=== PATIENT | female | born 1980 | race African-American/Black ===

== ENCOUNTER 2019-07-08 02:43 | Emergency (ER) | payer MEDICAID ==
[~2019-07-08] VITALS: Ht 170.2 cm; Wt 86.4 kg
[~2019-07-08 02:43] MED LIST: BENZ1TAB10 PO; RISP1 PO; TRAZ-252 PO
[2019-07-08 03:34] LABS: BASOPHILS % (AUTO) 0.3 % (0.0-2.0); EOSINOPHILS % (AUTO) 2.1 % (1.0-6.0); HEMATOCRIT 36.5 % (36-46); HEMOGLOBIN 11.9 g/dL (12.0-16.0); LYMPHOCYTES # (AUTO) 1.5 K/uL (1.0-4.8); LYMPHOCYTES % (AUTO) 17.7 % (22.0-44.0); MEAN CORPUSCULAR HEMOGLOBIN 27.5 pg (26.0-34.0); MEAN CORPUSCULAR HGB CONC 32.7 G/dL (31.0-37.0); MEAN CORPUSCULAR VOLUME 84 fL (80-100); MONOCYTES # (AUTO) 0.7 K/uL (0.1-1.0); MONOCYTES % (AUTO) 8.3 % (2.0-9.0); NEUTROPHILS # (AUTO) 6.1 K/uL (1.8-7.7); NEUTROPHILS % (AUTO) 71.6 % (40.0-70.0); PLATELET COUNT (AUTO) 320 K/uL (150-450); RED BLOOD CELL COUNT(AUTO) 4.34 MIL/uL (4.00-5.20); RED CELL DISTRIBUTION WIDTH 16.6 % (11.5-14.5)
[2019-07-08 03:47] LABS: ANION GAP 4 mmol/L (8-16); CALCIUM, TOTAL 7.9 mg/dL (8.8-10.5); CARBON DIOXIDE 30 mmol/L (22-29); CHLORIDE 106 mmol/L (98-107); CREATININE 0.84 mg/dL (0.60-1.30); GLOMERULAR FILTR. RATE CALC > 60 mL/min (>60); GLUCOSE,RANDOM 100 mg/dL (70-110); SODIUM SERUM 140 mmol/L (136-145); UREA NITROGEN, BLOOD 9 mg/dL (7-18)
[2019-07-08 04:07] LABS: ALANINE AMINOTRANSFERASE 26 U/L (12-78); ALBUMIN 3.4 g/dL (3.4-5.0); ALKALINE PHOSPHATASE 95 U/L (46-116); ASPARTATE AMINOTRANSFERASE 27 U/L (15-37); BILIRUBIN,TOTAL 0.1 mg/dL (0.1-1.0); HCG,QUANTITATIVE < 1 mIU/mL (0-6); TOTAL PROTEIN, SERUM 7.3 g/dL (6.4-8.2)
[2019-07-08 05:54] LABS: AMPHET/METH SCREEN,URINE NEGATIVE (NEGATIVE); BARBITURATE SCREEN, URINE NEGATIVE (NEGATIVE); BENZODIAZEPINES SCREEN,URINE NEGATIVE (NEGATIVE); CANNABINOID SCREEN,URINE NEGATIVE (NEGATIVE); COCAINE SCREEN,URINE NEGATIVE (NEGATIVE); METHADONE SCREEN, URINE NEGATIVE (NEGATIVE); OPIATE SCREEN,URINE NEGATIVE (NEGATIVE); PHENCYCLIDINE SCREEN,URINE NEGATIVE (NEGATIVE)
[2019-07-08 10:20] VITALS: BP 106/65
== END 2019-07-08 10:42 | disposition home or self-care (01) ==
LOC: EMS 02:44
DX: S02.2XXA Fracture of nasal bones, initial encounter for closed fracture (principal); S00.03XA Contusion of scalp, initial encounter; S00.83XA Contusion of other part of head, initial encounter; S10.93XA Contusion of unspecified part of neck, initial encounter; F10.129 Alcohol abuse with intoxication, unspecified; F19.90 Other psychoactive substance use, unspecified, uncomplicated; Y04.2XXA Assault by strike against or bumped into by another person, initial encounter; Y93.89 Activity, other specified; Y92.89 Other specified places as the place of occurrence of the external cause; Y99.8 Other external cause status
CPT/HCPCS: 36415; 70450; 70486; 72125; 80053; 80307; 84702; 85025; 99285; G0480

== ENCOUNTER 2019-09-28 22:18 | Inpatient (IN) | payer MEDICAID ==
[2019-09-29] MEDS ORDERED: ZOLPIDEM TARTRATE 10 MG TABLET PO PRN (01:15)
[2019-09-29] MEDS ORDERED: HALOPERIDOL 5 MG TABLET PO PRN (01:15)
[2019-09-29 01:18] VITALS: BP 111/67
[2019-09-29] MEDS ORDERED: INFLUENZA VIRUS VACCINE QVS 2019-20 (3YR+)/PF 60 MCG/0.5 ML SYRINGE IM ONE (02:30)
[2019-09-29 08:30] VITALS: BP 104/65
[2019-09-29] MEDS: LORazepam 1 MG TABLET PO PRN ×2 (10:26→15:24)
[2019-09-29] MEDS ORDERED: LOPERAMIDE HCL 2 MG CAPSULE PO PRN (11:15)
[2019-09-29] MEDS ORDERED: ALBUTEROL SULFATE HFA 90 MCG/PUFF 8 GM INHALER IH PRN (11:15)
[2019-09-29] MEDS ORDERED: MAGNESIUM HYDROXIDE SUSPENSION 30 ML UDCUP PO PRN (11:15)
[2019-09-29] MEDS ORDERED: NICOTINE 14 MG/24 HOUR PATCH TD PRN (11:15)
[2019-09-29] MEDS ORDERED: ACETAMINOPHEN 325 MG TABLET PO PRN (11:15)
[2019-09-29] MEDS ORDERED: CloNIDine HCL 0.1 MG TABLET PO PRN (11:15)
[2019-09-29] MEDS ORDERED: GuaiFENesin/D-METHORPHAN [SUGAR-FREE] 200-20MG/10 ML SYRUP UDCUP PO PRN (11:15)
[2019-09-29] MEDS ORDERED: IBUPROFEN 400 MG TABLET PO PRN (11:15)
[2019-09-29] MEDS ORDERED: ONDANSETRON HCL 4 MG TABLET PO PRN (11:15)
[2019-09-29] MEDS ORDERED: DOCUSATE SODIUM 100 MG CAPSULE PO PRN (11:15)
[2019-09-29] MEDS ORDERED: MAG HYDROX/AL HYDROX/SIMETH ES 30 ML SUSPENSION UDCUP PO PRN (11:15)
[2019-09-29] MEDS ORDERED: PETROLATUM,WHITE 28 GM JELLY TP PRN (11:15)
[2019-09-29] MEDS: BusPIRone HCL 10 MG TABLET PO SCH (16:09)
[2019-09-29] MEDS: SERTRALINE HCL 100 MG TABLET PO SCH (16:09)
[2019-09-29] MEDS: RisperiDONE 2 MG TABLET PO SCH (16:09)
[2019-09-29 16:14] VITALS: BP 112/60
[2019-09-29] MEDS: TraZODone HCL 50 MG TABLET PO SCH (20:25)
[2019-09-30 06:51] VITALS: BP 98/63
[2019-09-30 07:44] LABS: CHOL/HDL RATIO 1.9 (3.9-5.7); FREE T4 (FREE THYROXINE) 1.29 ng/dL (0.76-1.46)
[2019-09-30] MEDS: SERTRALINE HCL 100 MG TABLET PO SCH (08:34)
[2019-09-30] MEDS: BusPIRone HCL 10 MG TABLET PO SCH ×2 (08:34→16:57)
[2019-09-30] MEDS: RisperiDONE 2 MG TABLET PO SCH ×2 (08:34→16:57)
[2019-09-30 08:40] VITALS: BP 111/62
[2019-09-30 16:03] VITALS: BP 113/90
[2019-09-30] MEDS: TraZODone HCL 50 MG TABLET PO SCH (20:20)
[2019-10-01 07:12] VITALS: BP 106/62
[2019-10-01] MEDS: SERTRALINE HCL 100 MG TABLET PO SCH (08:33)
[2019-10-01] MEDS: BusPIRone HCL 10 MG TABLET PO SCH ×2 (08:33→17:00)
[2019-10-01] MEDS: RisperiDONE 2 MG TABLET PO SCH ×2 (08:33→17:00)
[2019-10-01 10:02] VITALS: BP 105/75
[2019-10-01 16:09] VITALS: BP 102/72
[2019-10-01] MEDS: TraZODone HCL 50 MG TABLET PO SCH (21:12)
[2019-10-02 05:03] VITALS: BP 108/64
[2019-10-02] MEDS: RisperiDONE 2 MG TABLET PO SCH ×2 (08:15→16:50)
[2019-10-02] MEDS: SERTRALINE HCL 100 MG TABLET PO SCH (08:15)
[2019-10-02] MEDS: BusPIRone HCL 10 MG TABLET PO SCH ×2 (08:15→16:50)
[2019-10-02 08:17] VITALS: BP 103/61
[2019-10-02 16:01] VITALS: BP 104/63
[2019-10-02] MEDS: TraZODone HCL 50 MG TABLET PO SCH (21:40)
[2019-10-03 00:33] VITALS: BP 107/53
[2019-10-03 08:15] VITALS: BP 96/61
[2019-10-03] MEDS: RisperiDONE 2 MG TABLET PO SCH ×2 (08:15→16:22)
[2019-10-03] MEDS: BusPIRone HCL 10 MG TABLET PO SCH ×2 (08:15→16:22)
[2019-10-03] MEDS: SERTRALINE HCL 100 MG TABLET PO SCH (08:15)
[2019-10-03 16:20] VITALS: BP 111/71
[2019-10-03] MEDS: TraZODone HCL 50 MG TABLET PO SCH (20:31)
[2019-10-04 00:24] VITALS: BP 91/52
[2019-10-04 08:13] VITALS: BP 104/63
[2019-10-04] MEDS: SERTRALINE HCL 100 MG TABLET PO SCH (08:17)
[2019-10-04] MEDS: BusPIRone HCL 10 MG TABLET PO SCH ×2 (08:17→16:02)
[2019-10-04] MEDS: RisperiDONE 2 MG TABLET PO SCH ×2 (08:17→16:01)
[2019-10-04 18:05] VITALS: BP 93/56
[2019-10-04] MEDS: TraZODone HCL 50 MG TABLET PO SCH (20:15)
[2019-10-05 00:52] VITALS: BP 86/46
[2019-10-05 01:55] VITALS: BP 90/47
[2019-10-05 08:15] VITALS: BP 106/62
[2019-10-05] MEDS: BusPIRone HCL 10 MG TABLET PO SCH ×2 (08:35→16:41)
[2019-10-05] MEDS: SERTRALINE HCL 100 MG TABLET PO SCH (08:35)
[2019-10-05] MEDS: RisperiDONE 2 MG TABLET PO SCH ×2 (08:35→16:41)
[2019-10-05 16:01] VITALS: BP 111/65
[2019-10-05] MEDS: TraZODone HCL 50 MG TABLET PO SCH (20:05)
[2019-10-06 00:46] VITALS: BP 96/58
[2019-10-06 08:13] VITALS: BP 100/55
[2019-10-06 08:13] LABS: ANION GAP 8 mmol/L (8-16); CALCIUM, TOTAL 8.8 mg/dL (8.8-10.5); CARBON DIOXIDE 26 mmol/L (22-29); CHLORIDE 108 mmol/L (98-107); CREATININE 0.82 mg/dL (0.60-1.30); GLOMERULAR FILTR. RATE CALC > 60 mL/min (>60); GLUCOSE,RANDOM 83 mg/dL (70-110); POTASSIUM 4.1 mmol/L (3.5-5.1); SODIUM SERUM 142 mmol/L (136-145); UREA NITROGEN, BLOOD 13 mg/dL (7-18)
[2019-10-06] MEDS: RisperiDONE 2 MG TABLET PO SCH ×2 (08:16→16:10)
[2019-10-06] MEDS: BusPIRone HCL 10 MG TABLET PO SCH ×2 (08:16→16:10)
[2019-10-06] MEDS: SERTRALINE HCL 100 MG TABLET PO SCH (08:16)
[2019-10-06 16:00] VITALS: BP 102/60
[2019-10-06] MEDS: TraZODone HCL 50 MG TABLET PO SCH (20:02)
[2019-10-07 06:39] VITALS: BP 90/51
[2019-10-07 09:20] VITALS: BP 100/62
[2019-10-07] MEDS: RisperiDONE 2 MG TABLET PO SCH ×2 (09:22→16:09)
[2019-10-07] MEDS: BusPIRone HCL 10 MG TABLET PO SCH ×2 (09:22→16:09)
[2019-10-07] MEDS: SERTRALINE HCL 100 MG TABLET PO SCH (09:22)
[2019-10-07 16:31] VITALS: BP 92/54
[2019-10-07] MEDS: TraZODone HCL 50 MG TABLET PO SCH (20:06)
[2019-10-08 06:22] VITALS: BP 103/58
[2019-10-08] MEDS: SERTRALINE HCL 100 MG TABLET PO SCH (08:01)
[2019-10-08] MEDS: RisperiDONE 2 MG TABLET PO SCH ×2 (08:01→16:40)
[2019-10-08] MEDS: BusPIRone HCL 10 MG TABLET PO SCH ×2 (08:01→16:40)
[2019-10-08 09:02] VITALS: BP 104/64
[2019-10-08 16:02] VITALS: BP 114/69
[2019-10-08] MEDS: TraZODone HCL 50 MG TABLET PO SCH (20:05)
[2019-10-09 00:31] VITALS: BP 98/65
[2019-10-09 08:22] VITALS: BP 106/70
[2019-10-09] MEDS: SERTRALINE HCL 100 MG TABLET PO SCH (08:52)
[2019-10-09] MEDS: BusPIRone HCL 10 MG TABLET PO SCH ×2 (08:52→16:55)
[2019-10-09] MEDS: RisperiDONE 2 MG TABLET PO SCH ×2 (08:52→16:55)
[2019-10-09 16:02] VITALS: BP 109/68
[2019-10-09] MEDS: TraZODone HCL 50 MG TABLET PO SCH (20:10)
[2019-10-10 00:26] VITALS: BP 88/45
[2019-10-10] MEDS: RisperiDONE 2 MG TABLET PO SCH ×2 (08:31→16:32)
[2019-10-10] MEDS: BusPIRone HCL 10 MG TABLET PO SCH ×2 (08:31→16:32)
[2019-10-10] MEDS: SERTRALINE HCL 100 MG TABLET PO SCH (08:31)
[2019-10-10 08:37] VITALS: BP 130/65
[2019-10-10 16:16] VITALS: BP 100/66
[2019-10-10] MEDS: TraZODone HCL 50 MG TABLET PO SCH (21:22)
[2019-10-11 05:26] VITALS: BP 100/60
[2019-10-11] MEDS: RisperiDONE 2 MG TABLET PO SCH (08:30)
[2019-10-11] MEDS: SERTRALINE HCL 100 MG TABLET PO SCH (08:30)
[2019-10-11] MEDS: BusPIRone HCL 10 MG TABLET PO SCH (08:30)
[2019-10-11 09:02] VITALS: BP 108/61
[2019-10-11] MEDS ORDERED: RISP2 PO (12:06)
[2019-10-11] MEDS ORDERED: BUSP10TA23 PO (12:06)
[2019-10-11] MEDS ORDERED: SERT100T12 PO (12:06)
== END 2019-10-11 13:15 | disposition home or self-care (01) | DRG 750 ==
LOC: B2S 09-29 01:00
PROVIDERS: ADMIT Psychiatry & Neurology Psychiatry; ATTEND Psychiatry & Neurology Child & Adolescent Psychiatry
DX: F25.9 Schizoaffective disorder, unspecified (principal); F15.20 Other stimulant dependence, uncomplicated; F17.200 Nicotine dependence, unspecified, uncomplicated; F31.9 Bipolar disorder, unspecified; G47.00 Insomnia, unspecified; R45.87 Impulsiveness; F41.9 Anxiety disorder, unspecified; Z59.0 Homelessness; Z63.8 Other specified problems related to primary support group; Z91.19 Patient's noncompliance with other medical treatment and regimen
CPT/HCPCS: 84439

== ENCOUNTER 2020-01-17 06:25 | Inpatient (IN) | payer MEDICAID ==
[~2020-01-17] VITALS: Ht 175.3 cm; Wt 80.0 kg
[~2020-01-17 06:25] MED LIST changes: -BENZ1TAB10 PO; +BUSP10TA23 PO; -RISP1 PO; +RISP2TAB23 PO; +SERT100T12 PO
[2020-01-17] MEDS ORDERED: HALOPERIDOL 5 MG TABLET PO PRN (09:15)
[2020-01-17] MEDS ORDERED: ZOLPIDEM TARTRATE 10 MG TABLET PO PRN (09:15)
[2020-01-17 11:45] VITALS: BP 126/78
[2020-01-17] MEDS: LORazepam 2 MG TABLET PO PRN (14:27)
[2020-01-17 16:06] VITALS: BP 113/90
[2020-01-17] MEDS: RisperiDONE 2 MG TABLET PO SCH (16:24)
[2020-01-17] MEDS: BusPIRone HCL 10 MG TABLET PO SCH (16:24)
[2020-01-17] MEDS: TraZODone HCL 50 MG TABLET PO SCH (20:12)
[2020-01-17] MEDS ORDERED: HALOPERIDOL LACTATE 5 MG/ML VIAL IM ONE (21:00)
[2020-01-17] MEDS ORDERED: LORazepam 2 MG/ML VIAL IM ONE (21:00)
[2020-01-17] MEDS ORDERED: DiphenhydrAMINE HCL 50 MG/ML VIAL IM ONE (21:00)
[2020-01-18 04:37] VITALS: BP 102/86
[2020-01-18] MEDS ORDERED: NICOTINE 14 MG/24 HOUR PATCH TD PRN (07:30)
[2020-01-18] MEDS ORDERED: IBUPROFEN 400 MG TABLET PO PRN (07:30)
[2020-01-18] MEDS ORDERED: CloNIDine HCL 0.1 MG TABLET PO PRN (07:30)
[2020-01-18] MEDS ORDERED: MAGNESIUM HYDROXIDE SUSPENSION 30 ML UDCUP PO PRN (07:30)
[2020-01-18] MEDS ORDERED: DOCUSATE SODIUM 100 MG CAPSULE PO PRN (07:30)
[2020-01-18] MEDS ORDERED: ALBUTEROL SULFATE HFA 90 MCG/PUFF 8 GM INHALER IH PRN (07:30)
[2020-01-18] MEDS ORDERED: MAG HYDROX/AL HYDROX/SIMETH ES 30 ML SUSPENSION UDCUP PO PRN (07:30)
[2020-01-18] MEDS ORDERED: ACETAMINOPHEN 325 MG TABLET PO PRN (07:30)
[2020-01-18] MEDS ORDERED: PETROLATUM,WHITE 28 GM JELLY TP PRN (07:30)
[2020-01-18] MEDS ORDERED: GuaiFENesin/D-METHORPHAN [SUGAR-FREE] 200-20MG/10 ML SYRUP UDCUP PO PRN (07:30)
[2020-01-18] MEDS ORDERED: LOPERAMIDE HCL 2 MG CAPSULE PO PRN (07:30)
[2020-01-18] MEDS ORDERED: ONDANSETRON HCL 4 MG TABLET PO PRN (07:30)
[2020-01-18] MEDS: SERTRALINE HCL 100 MG TABLET PO SCH (08:41)
[2020-01-18] MEDS: RisperiDONE 2 MG TABLET PO SCH ×2 (08:42→16:59)
[2020-01-18] MEDS: BusPIRone HCL 10 MG TABLET PO SCH ×2 (08:42→16:59)
[2020-01-18] MEDS: LORazepam 2 MG TABLET PO PRN (08:44)
[2020-01-18 16:55] VITALS: BP 114/76
[2020-01-18] MEDS: TraZODone HCL 50 MG TABLET PO SCH (20:28)
[2020-01-19 04:45] VITALS: BP 107/76
[2020-01-19 08:10] VITALS: BP 110/61
[2020-01-19 08:10] LABS: BASOPHILS % (AUTO) 0.3 % (0.0-2.0); EOSINOPHILS % (AUTO) 3.5 % (1.0-6.0); HEMATOCRIT 37.4 % (36-46); HEMOGLOBIN 12.2 g/dL (12.0-16.0); LYMPHOCYTES # (AUTO) 1.4 K/uL (1.0-4.8); MEAN CORPUSCULAR HEMOGLOBIN 27.5 pg (26.0-34.0); MEAN CORPUSCULAR HGB CONC 32.5 G/dL (31.0-37.0); MEAN CORPUSCULAR VOLUME 85 fL (80-100); MONOCYTES # (AUTO) 0.4 K/uL (0.1-1.0); MONOCYTES % (AUTO) 7.8 % (2.0-9.0); NEUTROPHILS # (AUTO) 3.5 K/uL (1.8-7.7); NEUTROPHILS % (AUTO) 62.4 % (40.0-70.0); PLATELET COUNT (AUTO) 323 K/uL (150-450); RED BLOOD CELL COUNT(AUTO) 4.42 MIL/uL (4.00-5.20); RED CELL DISTRIBUTION WIDTH 15.7 % (11.5-14.5)
[2020-01-19] MEDS: RisperiDONE 2 MG TABLET PO SCH ×2 (08:13→16:49)
[2020-01-19] MEDS: SERTRALINE HCL 100 MG TABLET PO SCH (08:13)
[2020-01-19] MEDS: BusPIRone HCL 10 MG TABLET PO SCH ×2 (08:13→16:49)
[2020-01-19 08:48] LABS: ALKALINE PHOSPHATASE 74 U/L (46-116); ANION GAP 9 mmol/L (8-16); ASPARTATE AMINOTRANSFERASE 27 U/L (15-37); BILIRUBIN,TOTAL 0.6 mg/dL (0.1-1.0); CALCIUM, TOTAL 8.6 mg/dL (8.8-10.5); CARBON DIOXIDE 25 mmol/L (22-29); CHLORIDE 105 mmol/L (98-107); CREATININE 0.79 mg/dL (0.60-1.30); GLOMERULAR FILTR. RATE CALC > 60 mL/min (>60); GLUCOSE,RANDOM 76 mg/dL (70-110); POTASSIUM 3.8 mmol/L (3.5-5.1); SODIUM SERUM 139 mmol/L (136-145); UREA NITROGEN, BLOOD 10 mg/dL (7-18)
[2020-01-19 08:49] LABS: ALANINE AMINOTRANSFERASE 30 U/L (12-78); ALBUMIN 3.4 g/dL (3.4-5.0); CHOL/HDL RATIO 2.2 (3.9-5.7); CHOLESTEROL 157 mg/dL (131-200); FREE T4 (FREE THYROXINE) 1.23 ng/dL (0.76-1.46); HCG,QUANTITATIVE < 1 mIU/mL (0-6); HDL CHOLESTEROL 73 mg/dL (40-60); LDL CHOL (CALC.) 72 mg/dL (0-130); THYROID STIMULATING HORMONE 0.36 uIU/mL (0.36-3.74); TOTAL PROTEIN, SERUM 7.2 g/dL (6.4-8.2); TRIGLYCERIDES 61 mg/dL (15-150)
[2020-01-19 16:08] VITALS: BP 119/65
[2020-01-19] MEDS: TraZODone HCL 50 MG TABLET PO SCH (20:35)
[2020-01-20 05:22] VITALS: BP 107/86
[2020-01-20] MEDS: SERTRALINE HCL 100 MG TABLET PO SCH (08:22)
[2020-01-20] MEDS: RisperiDONE 2 MG TABLET PO SCH ×2 (08:22→16:04)
[2020-01-20] MEDS: BusPIRone HCL 10 MG TABLET PO SCH ×2 (08:22→16:04)
[2020-01-20 08:24] VITALS: BP 101/65
[2020-01-20] MEDS ORDERED: SERT100T12 PO (15:52)
[2020-01-20 16:13] VITALS: BP 109/66
== END 2020-01-20 18:13 | disposition home or self-care (01) | DRG 885 ==
LOC: B2S 10:17 → B3A 21:25
PROVIDERS: ADMIT Psychiatry & Neurology Child & Adolescent Psychiatry; ATTEND Psychiatry & Neurology Child & Adolescent Psychiatry
DX: F20.0 Paranoid schizophrenia (principal); F10.10 Alcohol abuse, uncomplicated; F15.10 Other stimulant abuse, uncomplicated; Y90.9 Presence of alcohol in blood, level not specified
CPT/HCPCS: 84439; 84443; G0480; J1200; J1630; J2060

== ENCOUNTER 2020-01-21 23:25 | Emergency (ER) | payer MEDICAID ==
[~2020-01-21] VITALS: Ht 175.3 cm; Wt 78.2 kg
[2020-01-22 01:14] LABS: ANION GAP 13 mmol/L (8-16); CARBON DIOXIDE 23 mmol/L (22-29); CHLORIDE 101 mmol/L (98-107); GLOMERULAR FILTR. RATE CALC > 60 mL/min (>60); GLUCOSE,RANDOM 109 mg/dL (70-110); POTASSIUM 3.4 mmol/L (3.5-5.1); SODIUM SERUM 137 mmol/L (136-145); UREA NITROGEN, BLOOD 6 mg/dL (7-18)
[2020-01-22 01:16] LABS: BASOPHILS % (AUTO) 0.1 % (0.0-2.0); EOSINOPHILS % (AUTO) 0.8 % (1.0-6.0); HEMATOCRIT 38.1 % (36-46); HEMOGLOBIN 12.4 g/dL (12.0-16.0); LYMPHOCYTES # (AUTO) 0.7 K/uL (1.0-4.8); MEAN CORPUSCULAR HEMOGLOBIN 27.4 pg (26.0-34.0); MEAN CORPUSCULAR HGB CONC 32.7 G/dL (31.0-37.0); MEAN CORPUSCULAR VOLUME 84 fL (80-100); MONOCYTES # (AUTO) 0.6 K/uL (0.1-1.0); MONOCYTES % (AUTO) 7.5 % (2.0-9.0); NEUTROPHILS # (AUTO) 6.6 K/uL (1.8-7.7); NEUTROPHILS % (AUTO) 82.6 % (40.0-70.0); PLATELET COUNT (AUTO) 336 K/uL (150-450); RED BLOOD CELL COUNT(AUTO) 4.55 MIL/uL (4.00-5.20); RED CELL DISTRIBUTION WIDTH 15.4 % (11.5-14.5)
[2020-01-22 01:24] LABS: ALANINE AMINOTRANSFERASE 27 U/L (12-78); ALBUMIN 3.8 g/dL (3.4-5.0); ALKALINE PHOSPHATASE 81 U/L (46-116); ASPARTATE AMINOTRANSFERASE 25 U/L (15-37); BILIRUBIN,TOTAL 0.3 mg/dL (0.1-1.0); HCG,QUANTITATIVE < 1 mIU/mL (0-6)
[2020-01-22] MEDS ORDERED: LORazepam 1 MG TABLET PO ONE (01:45)
[2020-01-22] MEDS ORDERED: RisperiDONE 1 MG TABLET PO ONE (01:45)
[2020-01-22 01:51] LABS: APPEARANCE,URINE CLEAR (CLEAR); BILIRUBIN,URINE NEGATIVE (NEGATIVE); GLUCOSE, URINE (UA) NEGATIVE (NEGATIVE); KETONES,URINE NEGATIVE (NEGATIVE); LEUKOCYTE ESTERASE ,URINE NEGATIVE (NEGATIVE); NITRATE,URINE NEGATIVE (NEGATIVE); OCCULT BLOOD,URINE NEGATIVE (NEGATIVE); PROTEIN,URINE NEGATIVE (NEGATIVE); UROBILINOGEN,URINE 0.2 mg/dL (<=1.0)
[2020-01-22 01:56] LABS: AMPHET/METH SCREEN,URINE POSITIVE (NEGATIVE); BARBITURATE SCREEN, URINE NEGATIVE (NEGATIVE); BENZODIAZEPINES SCREEN,URINE NEGATIVE (NEGATIVE); CANNABINOID SCREEN,URINE NEGATIVE (NEGATIVE); COCAINE SCREEN,URINE NEGATIVE (NEGATIVE); METHADONE SCREEN, URINE NEGATIVE (NEGATIVE); OPIATE SCREEN,URINE NEGATIVE (NEGATIVE)
[2020-01-22 02:06] LABS: PHENCYCLIDINE SCREEN,URINE NEGATIVE (NEGATIVE)
[2020-01-22 03:49] VITALS: BP 137/65
== END 2020-01-22 03:55 | disposition home or self-care (01) ==
LOC: EMS 23:25
DX: F25.9 Schizoaffective disorder, unspecified (principal); F15.10 Other stimulant abuse, uncomplicated; Z79.899 Other long term (current) drug therapy
CPT/HCPCS: 36415; 80053; 80307; 81003; 84702; 85025; 99284; G0480

== ENCOUNTER 2020-10-03 01:59 | Inpatient (IN) | payer MEDICAID ==
[~2020-10-03] VITALS: Ht 175.3 cm; Wt 87.8 kg
[~2020-10-03 01:59] MED LIST changes: -RISP2TAB23 PO; +RISP2TAB45 PO; +SERT-162 PO; -SERT100T12 PO
[2020-10-04] VITALS (9 sets, daily range): BP systolic 105–128; BP diastolic 64–83
[2020-10-04] MEDS ORDERED: INFLUENZA VIRUS VACCINE QVS 2020-21 (6MO+)/PF 60 MCG/0.5 ML SYRINGE IM ONE (06:00)
[2020-10-04] MEDS: CEPHALEXIN MONOHYDRATE 500 MG CAPSULE PO SCH ×2 (08:53→16:39)
[2020-10-04] MEDS ORDERED: DOCUSATE SODIUM 100 MG CAPSULE PO PRN (09:00)
[2020-10-04] MEDS ORDERED: GuaiFENesin/D-METHORPHAN [SUGAR-FREE] 200-20MG/10 ML SYRUP UDCUP PO PRN (09:00)
[2020-10-04] MEDS ORDERED: PETROLATUM,WHITE 28 GM JELLY TP PRN (09:00)
[2020-10-04] MEDS ORDERED: IBUPROFEN 400 MG TABLET PO PRN (09:00)
[2020-10-04] MEDS ORDERED: ACETAMINOPHEN 325 MG TABLET PO PRN (09:00)
[2020-10-04] MEDS ORDERED: CloNIDine HCL 0.1 MG TABLET PO PRN (09:00)
[2020-10-04] MEDS ORDERED: ONDANSETRON HCL 4 MG TABLET PO PRN (09:00)
[2020-10-04] MEDS ORDERED: NICOTINE 14 MG/24 HOUR PATCH TD PRN (09:00)
[2020-10-04] MEDS ORDERED: LOPERAMIDE HCL 2 MG CAPSULE PO PRN (09:00)
[2020-10-04] MEDS ORDERED: MAG HYDROX/AL HYDROX/SIMETH ES 30 ML SUSPENSION UDCUP PO PRN (09:00)
[2020-10-04] MEDS ORDERED: ALBUTEROL SULFATE HFA 90 MCG/PUFF 8 GM INHALER IH PRN (09:00)
[2020-10-04] MEDS ORDERED: MAGNESIUM HYDROXIDE SUSPENSION 30 ML UDCUP PO PRN (09:00)
[2020-10-04] MEDS ORDERED: CEPH500C3 PO (10:01)
[2020-10-04] MEDS ORDERED: ChlordiazePOXIDE HCL 25 MG CAPSULE PO PRN (11:30)
[2020-10-04] MEDS: BusPIRone HCL 10 MG TABLET PO SCH ×2 (12:10→16:38)
[2020-10-04] MEDS: RisperiDONE 2 MG TABLET PO SCH ×2 (12:10→16:38)
[2020-10-04] MEDS: SERTRALINE HCL 100 MG TABLET PO SCH (12:10)
[2020-10-04] MEDS: TraZODone HCL 50 MG TABLET PO SCH (20:28)
[2020-10-05 04:07] VITALS: BP 112/64
[2020-10-05] MEDS ORDERED: ChlordiazePOXIDE HCL 25 MG CAPSULE PO PRN (07:00)
[2020-10-05 08:50] VITALS: BP 124/70
[2020-10-05] MEDS: CEPHALEXIN MONOHYDRATE 500 MG CAPSULE PO SCH ×2 (08:51→16:17)
[2020-10-05] MEDS: BusPIRone HCL 10 MG TABLET PO SCH ×2 (08:51→16:17)
[2020-10-05] MEDS: ChlordiazePOXIDE HCL 25 MG CAPSULE PO SCH ×4 (08:51→20:02)
[2020-10-05] MEDS: RisperiDONE 2 MG TABLET PO SCH ×2 (08:51→16:17)
[2020-10-05] MEDS: SERTRALINE HCL 100 MG TABLET PO SCH (08:52)
[2020-10-05 18:03] VITALS: BP 104/65
[2020-10-05 18:30] VITALS: BP 103/66
[2020-10-05] MEDS: TraZODone HCL 50 MG TABLET PO SCH (20:02)
[2020-10-06 01:23] VITALS: BP 100/64
[2020-10-06 05:50] VITALS: BP 110/68
[2020-10-06] MEDS: ChlordiazePOXIDE HCL 25 MG CAPSULE PO SCH ×4 (08:26→20:16)
[2020-10-06] MEDS: CEPHALEXIN MONOHYDRATE 500 MG CAPSULE PO SCH ×2 (08:26→16:31)
[2020-10-06] MEDS: RisperiDONE 2 MG TABLET PO SCH ×2 (08:26→16:31)
[2020-10-06] MEDS: BusPIRone HCL 10 MG TABLET PO SCH ×2 (08:26→16:31)
[2020-10-06 08:35] VITALS: BP 120/70
[2020-10-06] MEDS: SERTRALINE HCL 100 MG TABLET PO SCH (08:36)
[2020-10-06 16:31] VITALS: BP 105/66
[2020-10-06] MEDS: TraZODone HCL 50 MG TABLET PO SCH (20:17)
[2020-10-06 21:56] VITALS: BP 105/66
[2020-10-07 01:42] VITALS: BP 105/58
[2020-10-07 01:44] VITALS: BP 103/60
[2020-10-07] MEDS ORDERED: ChlordiazePOXIDE HCL 10 MG CAPSULE PO PRN (07:00)
[2020-10-07] MEDS: ChlordiazePOXIDE HCL 10 MG CAPSULE PO SCH ×4 (08:21→21:20)
[2020-10-07] MEDS: SERTRALINE HCL 100 MG TABLET PO SCH (08:21)
[2020-10-07] MEDS: CEPHALEXIN MONOHYDRATE 500 MG CAPSULE PO SCH ×2 (08:22→16:34)
[2020-10-07] MEDS: RisperiDONE 2 MG TABLET PO SCH ×2 (08:22→16:35)
[2020-10-07] MEDS: BusPIRone HCL 10 MG TABLET PO SCH ×2 (08:22→16:35)
[2020-10-07 08:28] VITALS: BP 105/62
[2020-10-07 08:30] VITALS: BP 105/62
[2020-10-07 16:00] VITALS: BP 110/68
[2020-10-07 16:22] VITALS: BP 110/68
[2020-10-07] MEDS: TraZODone HCL 50 MG TABLET PO SCH (21:24)
[2020-10-08 05:42] VITALS: BP 108/64
[2020-10-08] MEDS ORDERED: ChlordiazePOXIDE HCL 10 MG CAPSULE PO PRN (07:00)
[2020-10-08] MEDS: BusPIRone HCL 10 MG TABLET PO SCH ×2 (08:01→16:47)
[2020-10-08] MEDS: RisperiDONE 2 MG TABLET PO SCH ×2 (08:01→16:47)
[2020-10-08] MEDS: SERTRALINE HCL 100 MG TABLET PO SCH (08:01)
[2020-10-08] MEDS: CEPHALEXIN MONOHYDRATE 500 MG CAPSULE PO SCH ×2 (08:01→16:48)
[2020-10-08 08:20] LABS: BASOPHILS % (AUTO) 0.4 % (0.0-2.0); HEMATOCRIT 37.6 % (36-46); HEMOGLOBIN 12.1 g/dL (12.0-16.0); LYMPHOCYTES # (AUTO) 1.2 K/uL (1.0-4.8); LYMPHOCYTES % (AUTO) 30.9 % (22.0-44.0); MEAN CORPUSCULAR HEMOGLOBIN 28.1 pg (26.0-34.0); MEAN CORPUSCULAR HGB CONC 32.1 G/dL (31.0-37.0); MEAN CORPUSCULAR VOLUME 88 fL (80-100); MONOCYTES # (AUTO) 0.4 K/uL (0.1-1.0); MONOCYTES % (AUTO) 10.6 % (2.0-9.0); NEUTROPHILS # (AUTO) 2.1 K/uL (1.8-7.7); NEUTROPHILS % (AUTO) 53.1 % (40.0-70.0); PLATELET COUNT (AUTO) 319 K/uL (150-450); RED BLOOD CELL COUNT(AUTO) 4.29 MIL/uL (4.00-5.20); RED CELL DISTRIBUTION WIDTH 15.2 % (11.5-14.5)
[2020-10-08 08:25] VITALS: BP 116/84
[2020-10-08 08:41] LABS: ALANINE AMINOTRANSFERASE 21 U/L (12-78); ALKALINE PHOSPHATASE 78 U/L (46-116); ANION GAP 7 mmol/L (8-16); ASPARTATE AMINOTRANSFERASE 16 U/L (15-37); BILIRUBIN,TOTAL 0.3 mg/dL (0.1-1.0); CALCIUM, TOTAL 8.8 mg/dL (8.8-10.5); CARBON DIOXIDE 29 mmol/L (22-29); CHLORIDE 106 mmol/L (98-107); CHOL/HDL RATIO 2.2 (3.9-5.7); CHOLESTEROL 148 mg/dL (131-200); CREATININE 0.84 mg/dL (0.60-1.30); FREE T4 (FREE THYROXINE) 0.67 ng/dL (0.76-1.46); GLOMERULAR FILTR. RATE CALC > 60 mL/min (>60); GLUCOSE,RANDOM 93 mg/dL (70-110); HDL CHOLESTEROL 68 mg/dL (40-60); LDL CHOL (CALC.) 71 mg/dL (0-130); POTASSIUM 4.1 mmol/L (3.5-5.1); SODIUM SERUM 142 mmol/L (136-145); THYROID STIMULATING HORMONE 2.11 uIU/mL (0.36-3.74); TOTAL PROTEIN, SERUM 6.7 g/dL (6.4-8.2); TRIGLYCERIDES 44 mg/dL (15-150); UREA NITROGEN, BLOOD 12 mg/dL (7-18)
[2020-10-08 16:00] VITALS: BP 113/66
[2020-10-08 16:11] VITALS: BP 113/66
[2020-10-08] MEDS: TraZODone HCL 50 MG TABLET PO SCH (20:51)
[2020-10-09 01:38] VITALS: BP 104/76
[2020-10-09 06:16] VITALS: BP 104/76
[2020-10-09] MEDS: RisperiDONE 2 MG TABLET PO SCH ×2 (08:07→16:22)
[2020-10-09] MEDS: SERTRALINE HCL 100 MG TABLET PO SCH (08:07)
[2020-10-09] MEDS: CEPHALEXIN MONOHYDRATE 500 MG CAPSULE PO SCH ×2 (08:07→16:22)
[2020-10-09] MEDS: BusPIRone HCL 10 MG TABLET PO SCH ×2 (08:07→16:22)
[2020-10-09 08:19] VITALS: BP 114/76
[2020-10-09 16:49] VITALS: BP 111/61
== END 2020-10-09 19:33 | disposition home or self-care (01) | DRG 750 ==
LOC: B3A 10-04 03:30
PROVIDERS: ADMIT Psychiatry & Neurology Child & Adolescent Psychiatry; ATTEND Psychiatry & Neurology Child & Adolescent Psychiatry
DX: F25.1 Schizoaffective disorder, depressive type (principal); R10.13 Epigastric pain; Z59.0 Homelessness; I95.9 Hypotension, unspecified; F10.10 Alcohol abuse, uncomplicated
CPT/HCPCS: 83036; 84439; 84443

== ENCOUNTER 2020-11-04 03:37 | Emergency (ER) | payer MEDICAID ==
[~2020-11-04] VITALS: Ht 175.3 cm; Wt 83.2 kg
[~2020-11-04 03:37] MED LIST changes: +CEPH500C3 PO
[2020-11-04] MEDS ORDERED: PANTOPRAZOLE SODIUM 40 MG/VIAL IVP ONE (04:15)
[2020-11-04] MEDS ORDERED: MORPHINE SULFATE 4 MG/ML SYRINGE IVP ONE (04:15)
[2020-11-04] MEDS ORDERED: PANTOPRAZOLE SODIUM 80 MG in SODIUM CHLORIDE 0.9% 100 ML IV SCH (04:30)
[2020-11-04] MEDS ORDERED: ONDANSETRON HCL 4 MG/2 ML VIAL IVP ONE (04:30)
[2020-11-04] MEDS ORDERED: SODIUM CHLORIDE 0.9% 1,000 ML IV ONE (04:30)
[2020-11-04 04:31] LABS: APPEARANCE,URINE CLEAR (CLEAR); BILIRUBIN,URINE NEGATIVE (NEGATIVE); GLUCOSE, URINE (UA) NEGATIVE (NEGATIVE); KETONES,URINE NEGATIVE (NEGATIVE); LEUKOCYTE ESTERASE ,URINE NEGATIVE (NEGATIVE); NITRATE,URINE NEGATIVE (NEGATIVE); OCCULT BLOOD,URINE NEGATIVE (NEGATIVE); PROTEIN,URINE NEGATIVE (NEGATIVE); UROBILINOGEN,URINE 0.2 mg/dL (<=1.0)
[2020-11-04 04:31] LABS: BASOPHILS % (AUTO) 0.4 % (0.0-2.0); EOSINOPHILS % (AUTO) 3.8 % (1.0-6.0); HEMATOCRIT 34.8 % (36-46); HEMOGLOBIN 11.3 g/dL (12.0-16.0); LYMPHOCYTES % (AUTO) 20.5 % (22.0-44.0); MEAN CORPUSCULAR HEMOGLOBIN 27.8 pg (26.0-34.0); MEAN CORPUSCULAR HGB CONC 32.5 G/dL (31.0-37.0); MEAN CORPUSCULAR VOLUME 85 fL (80-100); MONOCYTES # (AUTO) 0.6 K/uL (0.1-1.0); MONOCYTES % (AUTO) 12.2 % (2.0-9.0); NEUTROPHILS # (AUTO) 3.1 K/uL (1.8-7.7); NEUTROPHILS % (AUTO) 63.1 % (40.0-70.0); PLATELET COUNT (AUTO) 268 K/uL (150-450); RED BLOOD CELL COUNT(AUTO) 4.08 MIL/uL (4.00-5.20); RED CELL DISTRIBUTION WIDTH 15.7 % (11.5-14.5)
[2020-11-04 04:36] LABS: AMPHET/METH SCREEN,URINE POSITIVE (NEGATIVE); BACTERIA,URINE None Seen /HPF (None Seen); BARBITURATE SCREEN, URINE NEGATIVE (NEGATIVE); BENZODIAZEPINES SCREEN,URINE POSITIVE (NEGATIVE); CANNABINOID SCREEN,URINE NEGATIVE (NEGATIVE); COCAINE SCREEN,URINE NEGATIVE (NEGATIVE); METHADONE SCREEN, URINE NEGATIVE (NEGATIVE); OPIATE SCREEN,URINE NEGATIVE (NEGATIVE); RBC,URINE 0-2 /HPF (0-2); SQUAMOUS EPITHELIAL CELL,UR Moderate /LPF (None Seen); WBC,URINE 0-2 /HPF (0-5)
[2020-11-04 04:38] LABS: ANION GAP 10 mmol/L (8-16); CALCIUM, TOTAL 8.6 mg/dL (8.8-10.5); CARBON DIOXIDE 25 mmol/L (22-29); CHLORIDE 108 mmol/L (98-107); CREATININE 0.81 mg/dL (0.60-1.30); GLOMERULAR FILTR. RATE CALC > 60 mL/min (>60); GLUCOSE,RANDOM 89 mg/dL (70-110); POTASSIUM 4.1 mmol/L (3.5-5.1); SODIUM SERUM 143 mmol/L (136-145); UREA NITROGEN, BLOOD 11 mg/dL (7-18)
[2020-11-04 04:38] LABS: PHENCYCLIDINE SCREEN,URINE NEGATIVE (NEGATIVE)
[2020-11-04 04:40] LABS: PROTHROMBIN TIME 10.9 SEC (9.4-11.6)
[2020-11-04 04:48] LABS: ALANINE AMINOTRANSFERASE 25 U/L (12-78); ALBUMIN 3.6 g/dL (3.4-5.0); ALKALINE PHOSPHATASE 100 U/L (46-116); ASPARTATE AMINOTRANSFERASE 28 U/L (15-37); BILIRUBIN,TOTAL 0.3 mg/dL (0.1-1.0); HCG,QUANTITATIVE < 1 mIU/mL (0-6); LIPASE 118 U/L (73-393); TOTAL PROTEIN, SERUM 7.7 g/dL (6.4-8.2)
[2020-11-04 04:58] LABS: LACTIC ACID 1.4 mmol/L (0.4-2.0)
[2020-11-04] MEDS ORDERED: FAMOTIDINE 10 MG/ML 2 ML VIAL IVP ONE (05:45)
[2020-11-04] MEDS ORDERED: MORPHINE SULFATE 2 MG/ML SYRINGE IVP ONE (05:45)
[2020-11-04] MEDS ORDERED: PB/HYOSCY/ATR/SCOP/LIDO/MAALOX 55 ML BOTTLE PO ONE (05:45)
[2020-11-04 06:53] VITALS: BP 137/82
== END 2020-11-04 07:23 | disposition home or self-care (01) ==
LOC: EMS 03:39
DX: R10.13 Epigastric pain (principal); R11.2 Nausea with vomiting, unspecified; F15.10 Other stimulant abuse, uncomplicated; F10.10 Alcohol abuse, uncomplicated; F20.9 Schizophrenia, unspecified; F41.9 Anxiety disorder, unspecified; F17.210 Nicotine dependence, cigarettes, uncomplicated; Z79.899 Other long term (current) drug therapy
CPT/HCPCS: 36415; 80053; 80307; 81001; 83605; 83690; 83735; 84702; 85025; 85610; 85730; 86850; 86900; 86901; 96365; 96366; 96375; 96376; 99284; C9113; G0480; J2270 ×2; J2405; J3490; J7030; J7050

== ENCOUNTER 2022-07-06 13:53 | Emergency (ER) | payer MEDICAID, OTHER ==
[~2022-07-06] VITALS: Ht 177.8 cm; Wt 74.8 kg
[~2022-07-06 13:53] MED LIST changes: -CEPH500C3 PO
[2022-07-06 14:32] VITALS: BP 132/84
== END 2022-07-06 15:19 ==
LOC: EMS 14:16
DX: R45.851 Suicidal ideations (principal); F41.9 Anxiety disorder, unspecified; R45.6 Violent behavior; F31.9 Bipolar disorder, unspecified; F17.210 Nicotine dependence, cigarettes, uncomplicated; F10.90 Alcohol use, unspecified, uncomplicated; F15.90 Other stimulant use, unspecified, uncomplicated; Z90.710 Acquired absence of both cervix and uterus; Z98.890 Other specified postprocedural states; Z91.018 Allergy to other foods
CPT/HCPCS: 99283